=== PATIENT | female | born 1975 | race Caucasian/White ===

== ENCOUNTER 2024-07-25 12:37 | Inpatient (IN) | payer SELFPAY ==
[~2024-07-25] VITALS: Ht 162.6 cm; Wt 71.3 kg
[2024-07-25 13:27] LABS: BASOPHILS # (AUTO) 0.1 X10'3 (0-0.2); BASOPHILS % (AUTO) 0.8 % (0-1); EOSINOPHILS # (AUTO) 0.2 X10'3 (0-0.9); EOSINOPHILS % (AUTO) 1.4 % (0-6); HEMATOCRIT 42.9 % (35.0-45.0); HEMOGLOBIN 14.2 g/dl (12.0-16.0); LYMPHOCYTES # (AUTO) 1.7 X10'3 (1.1-4.8); LYMPHOCYTES % (AUTO) 14.7 % (21-51); MEAN CORPUSCULAR HEMOGLOBIN 28.6 PG (27.0-31.0); MEAN CORPUSCULAR VOLUME 86.6 FL (78-98); MEAN PLATELET VOLUME 7.8 FL (7.4-10.4); MONOCYTES # (AUTO) 0.5 X10'3 (0-0.9); MONOCYTES % (AUTO) 4.4 % (2-12); NEUTROPHILS # (AUTO) 9.2 X10'3 (1.8-7.7); NEUTROPHILS % (AUTO) 78.7 % (42-75); PLATELET COUNT 405 X10'3 (140-440); RED BLOOD COUNT 4.95 X10'6 (4.20-5.60); RED CELL DISTRIBUTION WIDTH 13.4 % (11.5-14.5); WHITE BLOOD COUNT 11.7 X10'3 (4.5-11.0)
[2024-07-25 13:39] LABS: ALANINE AMINOTRANSFERASE 178 U/L (12-78); ALBUMIN 3.4 G/DL (3.4-5.0); ALBUMIN/GLOBULIN RATIO 1.1 (1.1-1.5); ALKALINE PHOSPHATASE 120 IU/L (46-116); ANION GAP 8 (8-16); ASPARTATE AMINO TRANSFERASE 88 U/L (10-37); BILIRUBIN,TOTAL 0.4 MG/DL (0.1-1.0); BLOOD UREA NITROGEN 11 MG/DL (7-18); BUN/CREATININE RATIO 15.5 (10.0-20.0); CALCIUM 8.8 MG/DL (8.5-10.1); CHLORIDE 104 MMOL/L (99-107); CREATININE 0.71 MG/DL (0.40-0.90); GLUCOSE 102 MG/DL (70-104); LIPASE 27 U/L (16-77); POTASSIUM 4.1 MMOL/L (3.5-5.1); SODIUM 140 MMOL/L (135-145); TOTAL CARBON DIOXIDE 27.8 MMOL/L (24-32); TOTAL PROTEIN 6.6 G/DL (6.4-8.2); eCRCL 83 ML/MIN; eGFR 87 ML/MIN
[2024-07-25] MEDS: normal saline 1000ml 1,000 ML IV ONE ×2 (13:41→16:37)
[2024-07-25] MEDS: ondansetron/PF 4mg/2ml inj IV ONE (13:41)
[2024-07-25] MEDS: morphine 4 MG/ML inj SYRINge IV ONE ×2 (13:42→16:37)
[2024-07-25 16:00] LABS: URINE HCG NEGATIVE (NEG)
[2024-07-25 16:01] LABS: BILIRUBIN,URINE NEGATIVE (Neg); CLARITY,URINE CLEAR (Clear); COLOR,URINE YELLOW (Yellow); GLUCOSE, URINE NEGATIVE (Neg); KETONES,URINE TRACE mg/dl (Neg); LEUKOCYTE ESTERASE ,URINE NEGATIVE (Neg); NITRITES, URINE NEGATIVE (Neg); OCCULT BLOOD,URINE NEGATIVE (Neg); PROTEIN,URINE NEGATIVE (Neg); UROBILINOGEN,URINE 0.2 E.U/dL (0.2-1.0)
[2024-07-25 16:06] LABS: UA COLLECTION TYPE CLN CATCH MIDSTREAM
[2024-07-25] MEDS ORDERED: mag hydrox/Alum hydrox/simeth 30ml oral suspension PO PRN (17:05)
[2024-07-25] MEDS ORDERED: potassium Cl 20 mEq SR tablet PO PRN ×2 (17:05)
[2024-07-25] MEDS ORDERED: potassium Cl 40MEQ/1/2NS 520ml 520 ML IV PRN (17:05)
[2024-07-25] MEDS ORDERED: magnesium sulf-water 2g/50mL 50 ML IV PRN (17:05)
[2024-07-25] MEDS ORDERED: magnesium Cl slow-release 64mg tablet PO PRN (17:05)
[2024-07-25] MEDS ORDERED: magnesium hydroxide 30ml (MOM) UD suspension PO PRN (17:05)
[2024-07-25] MEDS ORDERED: magnesium sulf-water 4G/100mL 100 ML IV PRN (17:05)
[2024-07-25] MEDS: piperacillin/tazo 4.5gm/100ml 100 ML IV SCH (17:34)
[2024-07-25] MEDS: dextrose 5%-1/2 normal saline 1,000 ML IV SCH (18:40)
[2024-07-25] MEDS: K and/or MAG REPLACEMENT MC SCH (20:00)
[2024-07-25] MEDS: docusate sod 100mg capsule PO SCH (20:00)
[2024-07-25] MEDS ORDERED: piperacillin/tazo 4.5gm/100ml 100 ML IV SCH (20:00)
[2024-07-25] MEDS ORDERED: DEXL30CA9 PO (21:15)
[2024-07-25] MEDS ORDERED: FLUO40CA PO (21:15)
[2024-07-25 21:30] VITALS: BP 101/55; PULSE 87; RESP 16; TEMP 98.5; O2SAT 95
[2024-07-25] MEDS: morphine 2 MG/ML inj. syringe IV PRN (21:42)
[2024-07-26] MEDS: ondansetron/PF 4mg/2ml inj IV PRN (02:03)
[2024-07-26 06:00] VITALS: BP 108/63; PULSE 72; RESP 18; TEMP 98.1; O2SAT 97
[2024-07-26 06:33] LABS: BASOPHILS % (AUTO) 0.5 % (0-1); EOSINOPHILS # (AUTO) 0.2 X10'3 (0-0.9); EOSINOPHILS % (AUTO) 3.7 % (0-6); HEMATOCRIT 33.9 % (35.0-45.0); HEMOGLOBIN 11.5 g/dl (12.0-16.0); LYMPHOCYTES # (AUTO) 1.8 X10'3 (1.1-4.8); LYMPHOCYTES % (AUTO) 28.7 % (21-51); MEAN CORPUSCULAR HEMOGLOBIN 29.8 PG (27.0-31.0); MEAN CORPUSCULAR VOLUME 87.4 FL (78-98); MONOCYTES # (AUTO) 0.4 X10'3 (0-0.9); NEUTROPHILS # (AUTO) 3.7 X10'3 (1.8-7.7); NEUTROPHILS % (AUTO) 60.1 % (42-75); PLATELET COUNT 296 X10'3 (140-440); RED BLOOD COUNT 3.87 X10'6 (4.20-5.60); WHITE BLOOD COUNT 6.2 X10'3 (4.5-11.0)
[2024-07-26 06:48] LABS: ALANINE AMINOTRANSFERASE 404 U/L (12-78); ALBUMIN 2.6 G/DL (3.4-5.0); ALBUMIN/GLOBULIN RATIO 0.9 (1.1-1.5); ALKALINE PHOSPHATASE 162 IU/L (46-116); ANION GAP 5 (8-16); ASPARTATE AMINO TRANSFERASE 303 U/L (10-37); BILIRUBIN,TOTAL 0.6 MG/DL (0.1-1.0); BLOOD UREA NITROGEN 5 MG/DL (7-18); BUN/CREATININE RATIO 7.7 (10.0-20.0); CALCIUM 8.1 MG/DL (8.5-10.1); CHLORIDE 109 MMOL/L (99-107); CREATININE 0.65 MG/DL (0.40-0.90); GLUCOSE 99 MG/DL (70-104); MAGNESIUM 1.9 MG/DL (1.5-2.4); POTASSIUM 4.6 MMOL/L (3.5-5.1); SODIUM 145 MMOL/L (135-145); TOTAL CARBON DIOXIDE 31.1 MMOL/L (24-32); TOTAL PROTEIN 5.4 G/DL (6.4-8.2); eCRCL 90 ML/MIN; eGFR > 90 ML/MIN
[2024-07-26] MEDS: pantoprazole 40mg Tablet.DR PO SCH (07:58)
[2024-07-26] MEDS: enoxaparin 40mg/0.4ml syringe SUBCUT SCH (07:58)
[2024-07-26 09:38] LABS: C DIFF ANTIGEN NEGATIVE (NEGATIVE); C DIFF SPECIMEN=DIARRHEA? ACCEPTABLE; C DIFFICILE TOXINS A&B NEGATIVE (Neg)
[2024-07-26 10:00] VITALS: BP 90/39; PULSE 69; RESP 14; TEMP 98.1; O2SAT 96
[2024-07-26] MEDS: FLUoxetine 20mg capsule PO ONE (10:28)
[2024-07-26 18:00] VITALS: BP 93/51; PULSE 70; RESP 14; TEMP 97.6; O2SAT 98
[2024-07-26 19:50] VITALS: RESP 15; O2SAT 98
[2024-07-26 22:00] VITALS: BP 104/56; PULSE 68; RESP 16; TEMP 98; O2SAT 97
[2024-07-27] MEDS: acetaminophen 325mg tablet PO PRN (00:53)
[2024-07-27 05:12] LABS: ALANINE AMINOTRANSFERASE 267 U/L (12-78); ALBUMIN 2.9 G/DL (3.4-5.0); ALKALINE PHOSPHATASE 146 IU/L (46-116); ANION GAP 7 (8-16); ASPARTATE AMINO TRANSFERASE 82 U/L (10-37); BILIRUBIN,TOTAL 0.4 MG/DL (0.1-1.0); BLOOD UREA NITROGEN 8 MG/DL (7-18); BUN/CREATININE RATIO 11.6 (10.0-20.0); CALCIUM 8.6 MG/DL (8.5-10.1); CHLORIDE 109 MMOL/L (99-107); CREATININE 0.69 MG/DL (0.40-0.90); GLUCOSE 116 MG/DL (70-104); POTASSIUM 4.1 MMOL/L (3.5-5.1); SODIUM 142 MMOL/L (135-145); TOTAL CARBON DIOXIDE 25.6 MMOL/L (24-32); TOTAL PROTEIN 5.9 G/DL (6.4-8.2); eCRCL 85 ML/MIN; eGFR 90 ML/MIN
[2024-07-27 05:58] LABS: BASOPHILS # (AUTO) 0.1 X10'3 (0-0.2); EOSINOPHILS # (AUTO) 0.4 X10'3 (0-0.9); EOSINOPHILS % (AUTO) 6.2 % (0-6); HEMATOCRIT 38.3 % (35.0-45.0); HEMOGLOBIN 12.8 g/dl (12.0-16.0); LYMPHOCYTES # (AUTO) 2.1 X10'3 (1.1-4.8); MEAN CORPUSCULAR HEMOGLOBIN 29.4 PG (27.0-31.0); MEAN CORPUSCULAR HGB CONC 33.3 g/dL (33.0-36.5); MEAN CORPUSCULAR VOLUME 88.3 FL (78-98); MEAN PLATELET VOLUME 7.9 FL (7.4-10.4); MONOCYTES # (AUTO) 0.4 X10'3 (0-0.9); MONOCYTES % (AUTO) 6.6 % (2-12); NEUTROPHILS # (AUTO) 3.6 X10'3 (1.8-7.7); NEUTROPHILS % (AUTO) 54.2 % (42-75); PLATELET COUNT 343 X10'3 (140-440); RED BLOOD COUNT 4.34 X10'6 (4.20-5.60); RED CELL DISTRIBUTION WIDTH 13.3 % (11.5-14.5); WHITE BLOOD COUNT 6.6 X10'3 (4.5-11.0)
[2024-07-27 06:00] VITALS: BP 98/43; PULSE 54; RESP 15; TEMP 97.8; O2SAT 99
[2024-07-27 06:45] VITALS: BP 99/55; PULSE 59; RESP 18; TEMP 98.4; O2SAT 98
[2024-07-27 06:50] VITALS: RESP 18; O2SAT 98
[2024-07-27] MEDS: FLUoxetine 20mg capsule PO SCH (07:41)
[2024-07-27] MEDS ORDERED: DEXLANSOPRAZOLE PO SCH (08:00)
[2024-07-27 10:00] VITALS: BP 95/49; PULSE 68; RESP 17; TEMP 98; O2SAT 99
[2024-07-27] MEDS ORDERED: PANT40TA54 PO (11:25)
[2024-07-27] MEDS ORDERED: METR-349 PO (11:31)
[2024-07-27] MEDS ORDERED: LACT1CAP26 PO (11:31)
[2024-07-27] MEDS ORDERED: CIPR250T4 PO (11:31)
[2024-07-27 14:30] VITALS: BP 96/60; PULSE 75; RESP 16; TEMP 99.2; O2SAT 97
== END 2024-07-27 16:58 | disposition home or self-care (01) | DRG 392 ==
LOC: ER 12:37 → ED HOLD 17:14 → EDBEDREQ 21:06 → CMPBEDREQ 21:25 → ORTHO 4S 21:26
PROVIDERS: ADMIT Internal Medicine; ATTEND Internal Medicine
DX: A09 Infectious gastroenteritis and colitis, unspecified (principal); F32.A Depression, unspecified; R74.01 Elevation of levels of liver transaminase levels; Z91.041 Radiographic dye allergy status; Z88.6 Allergy status to analgesic agent
CPT/HCPCS: 36415; 74176; 80053; 81003; 81025; 83690; 83735; 85025; 87081; 87324; 87449; 96361; 96374; 96375; 96376; 99285; G0378; J1650; J2270; J2405; J2543; J3490; J7030